=== PATIENT | female | born 1995 | race Caucasian/White ===

== ENCOUNTER 2018-04-18 23:45 | Emergency (ER) | payer BC ==
[~2018-04-18] VITALS: Ht 160 cm; Wt 55.3 kg
[2018-04-18 23:50] VITALS: BP 123/78
== END 2018-04-19 01:55 | disposition left against medical advice (07) ==
LOC: ER 23:45
DX: R06.02 Shortness of breath (principal); R07.89 Other chest pain; Z53.21 Procedure and treatment not carried out due to patient leaving prior to being seen by health care provider